=== PATIENT | male | born 1945 | race Hispanic/Latino ===

== ENCOUNTER 2023-08-16 08:04 | Day surgery (SDC) | payer BC, OTHER ==
[2023-08-16 08:29] LABS: Absolute Lymphocytes (CBC) 1.2 K/uL (0.7-4.9); Hematocrit 44.6 % (39.6-49.0); Lymphocytes % 19.4 % (15.3-44.8); MCV 89.8 fL (80-100); MPV 8.9 fL (7.6-11.3); Platelets 204 thou/uL (152-406); RBC Red Blood Cell Count 4.97 M/uL (4.33-5.43)
--- NOTE | 2023-08-16 08:36 | RAD REPORT ---
EXAM DESCRIPTION: RAD - Chest Single View - 08/16/2023 8:32 am CLINICAL HISTORY: pre-op COMPARISON: CHEST PA AND LAT 2 VIEW dated 02/06/2015 FINDINGS: Lines: None. Lungs: No evidence of edema or pneumonia. Pleural: No significant pleural effusions or pneumothorax. Cardiac: The heart size is within normal limits. Mediastinum: Within normal limits. Bones: No acute fractures. Other: None IMPRESSION: No acute cardiopulmonary disease.
[2023-08-16 08:43] LABS: Potassium 3.7 mEq/L (3.5-5.1)
[2023-08-16] MEDS: Ringers Lactate 1,000 ML IV ONE (08:50)
[2023-08-16] MEDS ORDERED: LIDOCAINE 1% MPF 5 ML VIAL ONE (09:19)
[2023-08-16] MEDS ORDERED: FENTANYL CITR 100 MCG/2 ML ONE (09:20)
[2023-08-16] MEDS ORDERED: propofoL 200 MG/20 ML VIAL IV ONE (09:20)
[2023-08-16] MEDS ORDERED: MIDAZOLAM HCL 2 MG/2 ML INJ ONE (09:20)
[2023-08-16] MEDS: CEFAZOLIN SODIUM 1 GM/VIAL ONE (09:29)
[2023-08-16] MEDS ORDERED: ONDANSETRON 4 MG/2 ML VIAL ONE (10:50)
[2023-08-16] MEDS ORDERED: KETOROLAC 30 MG/ML INJ ONE (10:50)
[2023-08-16] MEDS ORDERED: dexAMETHasone 10 MG/ML VIAL ONE (10:50)
--- NOTE | 2023-08-16 11:08 | P.BOP ---
Preoperative diagnosis: infected upper back and midback subQ tender masses Postoperative diagnosis: same Primary procedure: 1. Excisional biopsy infected midback subQ tender mass 5x5x2 cm Secondary procedure: 2. Excisional biopsy infected upper back subQ tender mass 4x4x2 cm Estimated blood loss: <10cc Specimen: mass x 2 Findings: infected masses Anesthesia: General Complications: None Transferred to: Recovery Room Condition: Good
--- NOTE | 2023-08-16 12:27 | OP ---
Date of Procedure: 08/16/2023 Surgeon: Davide Whitlock MD Preoperative Diagnosis: Infected upper back and mid back subcutaneous tender masses. Postoperative Diagnosis: Infected upper back and mid back subcutaneous tender masses. Procedures: 1.Excisional biopsy of infected mid back subcutaneous tender mass, 5 x 5 x 2 cm. 2.Excisional biopsy of infected upper shake backboard notcher subcutaneous mass, 4 x 4 x 2 cm. Estimated Blood Loss: Less than 10 cc. Specimen: Mass x2. Findings: Infected masses. Anesthesia: General plus local. Specimen: Masses and culture. Indications: This is a case of a [id number] patient who comes with draining masses from the upper back with erythema and redness. The patient is scheduled for excisional biopsy of infected ma ss with drainage of an abscess with benefits, alternatives, and risks including, but not limited to i nfection, bleeding, damage to adjacent structures, anesthesia complication, recurrence, [place], and even . He also understands this may not relieve symptoms. He might need more than one surgical inte rvention. He understands he will require wet-to-dry dressing changes. He understood, signed a conse nt. The areas of concern were marked by me and the patient in the holding room. Description Of Procedure: Patient was brought to the operating room, placed in supine position, anes thesia was done without complication. The patient was placed in lateral decubitus position with prop er protection. The back area was prepped and draped in sterile fashion. Local anesthesia was applie d after time-out and then we did this individually. One is in the upper back, one in the mid back. We did the upper back first. A wedge incision made in the skin all the way down to deep subcutaneous tissue. It goes to the fascia of the muscle, but does not penetrate the muscle. The mass was compl etely excised. Area was irrigated. Hemostasis obtained. Local anesthetic was applied and the area was packed with wet-to-dry dressing. We went into the big area once again in a wedged fashion. We d id remove that mass all the way down to the fascia of the muscle. Cultures were done as mentioned. Hemostasis was obtained. Irrigation was done. Local anesthesia was applied and then the area was pa cked with wet-to-dry dressing. Patient tolerated the procedure well. Patient was sent to recovery i n stable condition. Diagnosis: 2 back infected subcutaneous masses. Disposition: Home. Activity: As tolerated. No heavy lifting. Follow up in my office this Monday to make sure the dressing changes are done properly. Wet-to-dry d ressing, normal saline every day HM/MODL Voice ID: [id number] Report ID: [id number]
[2023-08-16 13:03] VITALS: BP 146/74; TEMP 97.1; O2SAT 95
--- NOTE | 2023-08-17 15:27 | EKG ---
Test Date: 2023-08-16 Test Time: 09:16:07 Line Locator: KADEN MEASUREMENT RESULTS: Intervals: Rate: 56 MD: 190 QRSD: 100 QT: 422 QTc: 407 [place]: P: 44 MD: 190 QRS: 13 T: 19 INTERPRETIVE STATEMENTS: Sinus bradycardia Otherwise normal ECG Compared to ECG 02/06/2015 15:41:25 No significant changes Electronically Signed On 08-17-23 15:24:30 [employer] by Tyler Goldstein
== END 2023-08-16 12:33 | disposition home or self-care (01) ==
LOC: OR 08:04
PROVIDERS: ATTEND Surgery
PROC: 0JB70ZZ Excision of Back Subcutaneous Tissue and Fascia, Open Approach (ICD-10-PCS; 2023-08-16)
PROC: 0JB70ZZ Excision of Back Subcutaneous Tissue and Fascia, Open Approach (ICD-10-PCS; principal; 2023-08-16 12:15)
DX: R22.2 Localized swelling, mass and lump, trunk (principal); L08.9 Local infection of the skin and subcutaneous tissue, unspecified; L72.0 Epidermal cyst; I10 Essential (primary) hypertension
CPT/HCPCS: 36415; 71045; 80048; 85025; 87070; 87075; 87205; 88304; 93005; J0690; J1100; J2001; J2250; J2405; J2704; J3010; J7120